=== PATIENT | male | born 1990 | race Caucasian/White ===

== ENCOUNTER 2024-01-12 16:34 | Outpatient (REF) | payer MEDICAID, SELFPAY ==
[2024-01-12 12:14] LABS: HCT 46.3 % (40.0-50.0); HGB 16.6 g/dL (13.5-17.5); MCH 28.8 pg (27.0-33.0); MCHC 35.9 % (32.0-36.0); MCV 80 fL (80-95); MPV 9.9 fL (8.0-11.0); Platelet Count 216 10^3/uL (130-400); RBC 5.76 10^6/uL (4.36-5.78); RDW 11.4 % (11.8-14.1); WBC 4.15 10^3/uL (4.4-10.8)
[2024-01-12 14:11] LABS: TSH (W/Ref FT4) < 0.01 uIU/mL (0.36-3.74)
[2024-01-12 14:37] LABS: FREE T4 1.48 ng/dL (0.76-1.46)
== END 2024-01-12 16:35 | disposition home or self-care (01) ==
LOC: LBN 16:34
PROVIDERS: PCP Nurse Practitioner Family; Visit Provider Nurse Practitioner Family
DX: E05.00 Thyrotoxicosis with diffuse goiter without thyrotoxic crisis or storm (principal)
CPT/HCPCS: 85027; 84439; 84443

== ENCOUNTER 2024-01-16 00:06 | Outpatient (CLI) | payer MEDICAID, SELFPAY ==
--- OUTSIDE RECORDS SUMMARY | 2024-01-16 00:10 | XMS_ITS | Encounter Summary ---
Author Organization [facility]ly [facility] [place] [address] Care Team Providers Care Sustainability Executive Director Name Role Phone None Primary Care Provider Unavailabl e Reason for Visit * Consultation (Routine) - Specialty Diagnoses / Procedures Referred By Daria t Referred To Contact Neurology Diagnoses Nocturnal seizures nocturnal seizures Procedures Epilepsy Clinic Roni De La Cruz MD [address] [place] [address] [place] [address] [facility] [address] [place] [id number] Referral ID Status Reason Start Date Expiration Date V isits Requested Visits Authorized [id number] [facility] Consult, Test & Treat PCP Updated and/or Approved 10/08/2016 10/08/2017 6 6 Encounter Details Date Type Department Care Team (Late st Contact Info) Description 11/06/2016 9:00 AM EDT Office [place] [address] Matheus Coughlin MD [facility] [place] [address] Focal epilepsy Social History Tobacco Use Types Packs/Day Years Used Date Smoking Tobacco: Some Days Smokeless Tobacco: Never Alcohol Use Standard Drinks/Week Comments Yes 0 (1 standard drink = 0.6 oz pur e alcohol) Couple drinks/night Sex and Gender Information Value Date Recorded Sex Assigned at Not on file Gender Identity Not on file Sexual Orientation Not on file documented as of this encounter Last Filed Vital Signs Vital Sign Reading Time Taken Comments Blood Pressure 133/75 11/06/2016 9:19 AM EDT Pulse 58 11/06/2016 9:19 AM EDT Temperature - - Respiratory Rate - - Oxygen Saturation - - Inhaled Oxygen Concentration - - Weight 85.3 kg (188 lb) 11/06/2016 9:19 AM EDT Height 180.3 cm (5' 11) 11/06/2016 9:19 AM EDT reported Body Mass Index 26.22 11/06/2016 9:19 AM EDT documented in this encounter Progress Notes * Matheus Coughlin MD - 11/06/2016 9:00 AM EDT [facility] [place] [address] Patient - Raymond Quiros Date of - 1990 PCP - None NEW Patient Evaluation I saw Raymond Quiros today at the [facility] for a consultation referred from Dr. Hansen for second opinion regarding patient with a first time diagnosis of epilepsy. Raymond is a 26-year-old right-handed man. He comes to the office accompanied by his . Patient reports that on August 29 and subsequently September 28, 2016, he suffered 2 generalized convulsions occurring in sleep. He does not remember anything from this. He recalls going to sleep in the evening without any concerns. At approximately 2 or 3 in the morning, his is woken up with him having body jerks, choking, shaking for approximately a minute. Subsequently, patient is unresponsive, groaning, and disoriented for about 30 minutes. He is not aggressive. Both of these episodes were very similar to each other. Patient was taken to the emergency room where evaluations have been normal. He has had an MRI scan of the brain on 09/16/16, which was read as normal. He also had 24-hour EEG on 10/04/2016 which was normal. Patient reports no prior symptoms similar to these. He denies any unexplained neurological symptoms. He had normal and normal early development. There is no childhood history of febrile seizures, [employer]ILDER [employer], infections, or traumatic brain injury. There is no family history of epilepsy. Patient has no other medical problems. Patient is presently on zonisamide 100 mg 3 tablets in the evening. He denies any side-effects to this medication. He is not taking any other medications. He has no medication allergies. Patient went to college at the [employer] and has a degree in entrepreneurship. 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 He smokes cigarettes, occasionally smokes marijuana, and drinks daily 2 to 3 beers. Patient denies any family history of neurological diseases. On review of systems, he replies a never to 19 items. He reports his depression score to be a 6 and quality of life score to be 9 out of 10. On examination, blood pressure is 133/75. His heart rate is 58. His height is 5' 11 and his BMI is 26. On neurological examination, patient has a narrow-based, symmetric arm swing to his gait. He is steady in the Romberg position with his eyes closed for 10 seconds. Cranial nerve examination reveals normal eye movements, including no nystagmus. Pupils are reactive. Fundi appear normal with sharp disk borders bilaterally. Face is symmetric. Tongue and palate are midline. Patient has symmetric fine finger movements, rapid alternating movements, and foot taps bilaterally. Ndqx-ro-plkk and xblkmr-oj-uksx are normal. Reflexes are 2+ throughout. There is no ankle clonus. Sensory examination to vibration and sharp is normal. I spent 60 minutes with Raymond, 35 minutes of this time were spent in counseling him regarding diagnosis of epilepsy, medication treatment and side-effects, future of taking medications, and safety with epilepsy especially given his job. I agree with Dr. Hansen that Raymond has had 2 generalized convulsive seizures with no risk factors and seemingly no inciting events. He is doing very well on zonisamide 300 mg without side-effects or seizures since starting the medication. We discussed that he should stay on this regimen for between 2 and 4 years, and subsequently can attempt a wean off the medications. If he were to have another seizure, increasing to 500 or 600 mg daily is indicated. Subsequently other medications can be used. Most likely, he has focal epilepsy. We discussed driving. I think it is safe for him to drive, as he had only nocturnal convulsions. We discussed work safety, including climbing ladders and roofs. I think this is probably also safe, as the seizure was nocturnal and patient is not having any balance problems from the zonisamide. We discussed when he should be more careful, including when he missed medications, when he has a fever, which he is stressed out or sleep deprived or any of the combination of above. Patient understood this well. We discussed seizure first aid, memory, and depression problems that could occur from epilepsy. I was real happy to see this patient. He follow up with Dr. Hansen. documented in this encounter Plan of Treatment Not on file documented as of this encounter Visit Diagnoses Diagnosis Focal epilepsy Localization-related (focal) (partial) epilepsy and epileptic syndromes with simple partial seizures, without mention of intractable epilepsy documented in this encounter Care Teams Sustainability Executive Director Relationship Specialty Start Date End Date None None PCP - General 11/06/16 documented as of this encounter
--- OUTSIDE RECORDS SUMMARY | 2024-01-16 00:10 | XMS_ITS | Clinical Summary ---
Author Organization [facility] [place] [address] Care Team Providers Care Edge Finisher Name Role Phone None Primary Care Provider Unavailabl e Allergies No known active allergies Medications Medication Sig Dispensed Refills Start Date End Date Status zonisamide (ZONEGRAN) 100 mg Capsule Take 3 capsules by mouth daily. 3 10/01/2016 Active Active Problems No known active problems Social History Tobacco Use Types Packs/Day Years Used Date Smoking Tobacco: Some Days Smokeless Tobacco: Never Alcohol Use Standard Drinks/Week Comments Yes 0 (1 standard drink = 0.6 oz pur e alcohol) Couple drinks/night Sex and Gender Information Value Date Recorded Sex Assigned at Not on file Gender Identity Not on file Sexual Orientation Not on file Last Filed Vital Signs Vital Sign Reading [...] Mass Index 26.22 11/06/2016 9:19 AM EDT Plan of Treatment Health Maintenance Due Date Last Done Comments HIV screen 08/31/2009 Hepatitis C Screening 08/31/2009 Hepatitis B vaccine (0-59 yrs) (1) 08/31/2010 Tetanus/Diphtheria/Pertussis Vaccines (1 - Tdap) 08/31 Covid-19 Vaccine (1 - 2023-25 season) 2023 Influenza (Flu) vaccine (1 o f 1 - Influenza standard series) 10/19/2023 Care Teams Edge Finisher Relationship Specialty Start Date End Date None None PCP - General 11/06/16
--- OUTSIDE RECORDS SUMMARY | 2024-01-16 00:10 | XMS_ITS | Encounter Summary ---
Author Organization [facility] Address [facility] [place] [address] Care Team Providers Care Nuclear Worker Technician Name Role Phone Jono Faust MD, Roni Primary Care Provider [phone] Encounter Details Date Type Department Care Team (Latest Contact Info) Description 08/29/2016 - 08/29/2016 11:59 PM EDT Hospital Encounter Radiology Library at [facility] [place] [address] Dashawn Castelan MD [facility] [place] [address] Pain Discharge Disposition: Home Social History Tobacco Use Types Packs/Day Years Used Date Smoking Tobacco: Never Assessed Sex and Gender Information Value Date Recorded Sex Assigned at Not on file Gender Identity Not on file Sexual Orientation Not on file documented as of this encounter Plan of Treatment Not on file documented as of this encounter Procedures Procedure Name Priority Date/Time Associated Diagnosis Comments FILM LIBRARY STORAGE ONLY CT HEAD Routine 08/29/2016 12:00 AM EDT Pain documented in this encounter Results * Film Library- Storage Only CT Head (08/29/2016 12:00 AM EDT) Narrative RAD - 10/04/2016 1:17 PM EDT This exam is for storage only and is auto-finalizing. Dashawn Castelan MD [facility] FILM LIBRARY ORD ERABLES [place], [place] documented in this encounter Visit Diagnoses Diagnosis Pain Generalized pain documented in this encounter Care Teams Nuclear Worker Technician Relationship Specialty Start Date End Date Roni [place] [address] PCP - General 01/09/10 10/03/16 documented as of this encounter
--- OUTSIDE RECORDS SUMMARY | 2024-01-16 00:10 | XMS_ITS | Encounter Summary ---
Author Organization [facility] Address [facility] [place] [address] Care Team Providers Care Poultry Inspector Name Role Phone Jono Faust MD, Roni Primary Care Provider [phone] Encounter Details Date Type Department Care Team (Latest Contact Info) Description 09/16/2016 - 09/16/2016 11:59 PM EDT Hospital Encounter Radiology Library at [facility] [place] [id number] Dashawn Castelan MD [facility] [place] [address] Pain Discharge Disposition: Home Social History Tobacco [...] Associated Diagnosis Comments FILM LIBRARY STORAGE ONLY MR HEAD Routine 09/16/2016 12:00 AM EDT Pain documented in this encounter Results * Film Library- Storage Only MR Head (09/16/2016 12:00 AM EDT) Narrative RAD - 10/04/2016 1:16 PM EDT This exam is for storage only and is auto-finalizing. Dashawn Castelan MD [facility] FILM LIBRARY ORD ERABLES [place], [place] documented in this encounter Visit Diagnoses Diagnosis Pain Generalized pain documented in this encounter Care Teams Poultry Inspector Relationship Specialty Start Date End Date Roni [place] [address] PCP - General 01/09/10 10/03/16 documented as of this encounter
--- NOTE | 2024-01-16 08:30 | DI.RAD_ITS ---
Exam(s) XR KNEE RT 3V AP,LAT,JR EXAM: XR KNEE RT 3V AP,LAT,JR CLINICAL HISTORY: giving out RT KNEE INJURY [id number]. TECHNIQUE: 2D digital imaging was performed of the right knee. Three views obtained. AP, lateral an d PA tunnel views were obtained. COMPARISON: No exams were available for comparison FINDINGS: BONES: No acute fracture is present. No bony destructive lesion is seen. JOINTS: The knee is normally aligned. No joint effusion is seen. SOFT TISSUE: There is mild soft tissue swelling anterior to the patella. IMPRESSION: No acute fracture or dislocation. DATA REPOSITORY: RADIATION DOSE DELIVERED:
== END 2024-01-16 00:26 ==
LOC: DI 00:07
PROVIDERS: PCP Nurse Practitioner Family; Visit Provider Nurse Practitioner Family
DX: S89.91XD Unspecified injury of right lower leg, subsequent encounter (principal); X58.XXXD Exposure to other specified factors, subsequent encounter
CPT/HCPCS: 73562

== ENCOUNTER 2024-02-19 02:34 | Outpatient (CLI) | payer MEDICAID, SELFPAY ==
--- NOTE | 2024-02-19 06:15 | DI.MRI_ITS ---
Exam(s) MR LOWER JOINT RT WO EXAM: MR LOWER JOINT RT WO CLINICAL HISTORY: ? ACL, MCL, MENISCUS TEAR,rt knee injury,[id number] TECHNIQUE: Multiplanar multisequence MRI of the knee was performed. COMPARISON: CR XR KNEE RT 3V AP,LAT,JR from 01/16/2024 FINDINGS: EFFUSION: A small amount of increased joint fluid. There is no large joint effusion. There is a thi n Hartmann cyst in the medial popliteal fossa which measures 4 cm length by 0.4 cm x 0.3 cm. MARROW:There is no evidence of fracture, bone contusion, nor osteochondral defects.. There are no si gnificant osseous lesions. There are no obvious loose intra-articular bodies. PATELLOFEMORAL COMPARTMENT: The quadriceps tendon is intact. The patellar ligament is intact. There is no significant thinning of the retropatellar cartilage. No evidence of fissure nor signific ant chondral defect. No osteochondral defect at this level.There is no intraosseous signal to sugges t recent patellar dislocation. There are no patellar retinacular tears. CRUCIATE LIGAMENTS: The anterior cruciate ligament appears somewhat thinner than typical for male of this age group. There is also some attenuation of this structure at its superior aspect. There is n o abnormal high signal to suggest acute ACL tear. The posterior cruciate ligament is intact but exhibits somewhat vertical course, possibly indirectly related to the ACL findings. MEDIAL COMPARTMENT/MEDIAL MENISCUS: There is a E radial tear in the outer 3rd of the medial meniscus which involves both the posterior and anterior horns. There is no bucket-handle configuration. The meniscal root appears intact. The body of the medial meniscus appears attenuated/blunted. There are no flipped meniscal fragments. There does not appear to be significant thinning of the articular cartilage over the medial condyle. There is no subarticular edema nor osteochondral defects. No marginal osteophytes. MEDIAL COLLATERAL LIGAMENT: Intact LATERAL COMPARTMENT/LATERAL MENISCUS: There is no evidence of lateral meniscal tear.There are no kelly dral defects, osteochondral defects, subarticular marrow edema, nor osteophytes evident. ILIOTIBIAL BAND: Intact LATERAL COLLATERAL LIGAMENT COMPLEX: The fibular collateral ligament is intact. The biceps femoris t endon is intact.Popliteus muscle and tendon are intact. OTHER: There is a small septated ganglion cyst measuring 7 by 6 x 6mm just medial to the proximal tib ial fibular joint, anterior to the musculotendinous junction of the popliteus. This is probably off of the tibial fibular articulation at this level. There is no actual joint effusion in this articula tion nor marrow edema around this articulation. IMPRESSION: 1. There is an outer 3rd vertical radial tear involving both the anterior posterior horns of the medi al meniscus. No associated bucket handle configuration nor flipped meniscal fragments. There is als o blunting of the body of the medial meniscus. No subarticular bone edema, osteochondral defects, no r medial compartment osteophytes. 2. The appearance of the anterior cruciate ligament is somewhat abnormal in that it appears slightly thinner than typical a male patient of this age group. Although there is no abnormal high signal to suggest acute ACL tear, I suspect that there has been prior partial tearing of this structure. Only one of the two fascicles of the structures visualized. The PCL is intact but somewhat vertically brandon entated which may be indirectly related to the ACL findings. 3. There is a small 0.7 x 0.6 x 0.6 cm septated ganglion cyst which appears to be off the medial aspe ct of the proximal tibiofibular articulation, as described above. 4. There is a small amount of increased joint fluid. There is a thin Hartmann cyst in the medial poplit eal fossa. DATA REPOSITORY:
== END 2024-02-19 02:54 ==
LOC: DI 02:34
PROVIDERS: PCP Nurse Practitioner Family; Visit Provider Student in an Organized Health Care Education/Training Program
DX: M23.231 Derangement of other medial meniscus due to old tear or injury, right knee (principal)
CPT/HCPCS: 73721

== ENCOUNTER 2024-03-02 12:07 | Outpatient (CLI) | payer MEDICAID, SELFPAY ==
[2024-03-02 11:27] LABS: TSH (W/Ref FT4) < 0.01 uIU/mL (0.36-3.74)
[2024-03-02 11:46] LABS: FREE T4 0.74 ng/dL (0.76-1.46)
== END 2024-03-02 12:08 | disposition home or self-care (01) ==
LOC: LBO 12:08
PROVIDERS: PCP Nurse Practitioner Family; Visit Provider Nurse Practitioner Family
DX: E05.00 Thyrotoxicosis with diffuse goiter without thyrotoxic crisis or storm (principal); S83.511A Sprain of anterior cruciate ligament of right knee, initial encounter; S83.241A Other tear of medial meniscus, current injury, right knee, initial encounter; S89.91XA Unspecified injury of right lower leg, initial encounter
CPT/HCPCS: 36415; 84439; 84443

== ENCOUNTER 2024-04-16 08:48 | Day surgery (SDC) | payer MEDICAID, SELFPAY ==
[2024-04-16] VITALS (17 sets, daily range): BP systolic 104–128; BP diastolic 59–92; PULSE 51–77; RESP 10–21; TEMP 36–36.7; O2SAT 97–100; BMI 26.8
--- NOTE | 2024-04-16 06:14 | W.PM.DSUDISC ---
Date of service: 04/16/24 Discharge Plan Disposition Patient Disposition: Home Condition: Stable Discharge Details Attending Provider: Oscar Marrero Primary Care Provider: Greyson Villar Home Meds and New Rx's Prescriptions: New naproxen 250 mg tablet 250 - 500 mg PO BID PRNQty: 40 0RF Rx Instructions: take with a meal aspirin 81 mg tablet,delayed release (DR/EC) 81 mg PO DAILY 14 Days Qty: 14 0RF oxycodone 5 mg tablet 5 - 10 mg PO Q4H MDD 30 mg PRN (Reason: moderate to severe pain) Qty: 18 0RF Continued efinaconazole 10 % solution with applicator 1 applic topical QHS 336 Days Qty: 8 0RF methimazole 10 mg tablet 10 mg PO DAILY Qty: 90 0RF zonisamide 100 mg capsule 200 mg PO BID Qty: 360 1RF Discharge Instructions Additional Instructions: Surgery: Right knee arthroscopy with ACL reconstruction (allograft) and partial medial & lateral meniscectomy 04/16/24; Chronic moderate MCL sprain Activity: Weightbearing as tolerated. No brace or crutches needed as soon as comfortable and stable on knee. Restore full knee extension as soon as possible. Perform early quad sets/quadriceps isometrics. Gradually increase flexion to full. Recommend elevation to minimize swelling discomfort. Encourage ankle pumps and wiggle toes to improve circulation. A physical therapy prescription will be sent electronically to begin in about 3 weeks. Avoid sports activities for about 9 months. Prescriptions: Aspirin 81 mg take 1 daily to prevent a blood clot for 14 days, starting tomorrow Naproxen 250 mg take 1-2 every 12 hours with a meal as needed for moderate pain Oxycodone 5 mg take 1-2 every 4-6 hours as needed for severe pain You may use vqak-yyc-kswkcyd Tylenol (acetaminophen) as needed for mild pain. These pain medications may be taken all at once or in different combinations as needed. Also, recommend Colace (docusate) as a stool softener as surgery and pain medicine cause constipation. You may try brts-nrh-zvvwnai diphenhydramine (Benadryl) 25-50 mg nightly as a sleep aid Dressings: Loosen/adjust JOHNNIE bandage for comfort. Leave dressing in place for 3 days. May then remove and leave open to air or cover incisions with Band-Aids. Leave the sticky Steri-Strips in place until they fall off or remove them after you shower. May shower after 5 days. Follow-up: 10-[address] Marrero You may take off the leg compression stockings this evening at home. You may also leave them on a few days longer if you have a history of leg swelling or edema. Let us know right away if you develop any redness, drainage, fevers, chest pain, or trouble breathing. Do not drink alcohol or drive for at least 24 hours after anesthesia. Please call the office during business hours with any questions or concerns. Discharge Orders Discharge Orders: Discharge Order (Routine); Ordered 04/16/24 Ordered By: Heather Covington DS: Diagnosis Discharge Diagnosis (1) Right ACL tear: Status: Acute (2) Acute medial meniscus tear of right knee: Status: Acute (3) Injury of medial collateral ligament of right knee: Status: Acute
--- NOTE | 2024-04-16 07:29 | ROE_ITS ---
Operative Note Operative Note PRE-OP DIAGNOSIS: Right knee: 1. Chronic ACL rupture 2. Chronic medial meniscus tear 3. Chronic healed MCL sprain 4. Small lateral meniscus tear PROCEDURE: Right knee: 1. ACL reconstruction, CPT #57784: Quadriceps allograft 2. Partial medial & lateral meniscectomy, CPT #40651 SURGEON: Oscar Marrero BOTTOM STAINER: Heather Covington ANESTHESIA TYPE: Local By Surgeon, General LMA/ETT and Primary Nerve Block Refer to Anesthesia Record ESTIMATED BLOOD LOSS: 10 TOURNIQUET TIME: 0 COMPLICATIONS: None Patient was transported to: PACU Patient's condition: stable Implants: Arthrex ACL TightRope II RT and ABS with 8x12 mm cortical button QuadLink pre-sutured quadriceps allograft: 10.5 x68 mm Indications: Please see complete medical record for details. Findings: Exam under anesthesia: Full range of motion, grossly positive Alfonso, equivocal pivot shift, moderate increased opening valgus stress with firm endpoint in extension and mild flexion. Stable varus. Arthroscopic findings: Moderate diffuse synovitis. Largely intact cartilage surfaces. Complete proximal ACL disruption, lateral empty wall. Small posterior horn lateral meniscus incomplete or more likely healed tear. Moderately sized red-white zone medial meniscus body posterior horn junction complex irreparable tear. Negative MCL drive-through sign medial compartment. Procedure Description: In the operating room, general anesthesia was induced. The patient was positioned supine on the operating room table. All bony prominences were well- padded. Preoperative antibiotics were administered. The knee was prepped and draped in the usual sterile fashion. The correct patient, procedure, and side of the procedure were all verified prior to incision. Exam under anesthesia was performed. Local anesthetic containing epinephrine was infiltrated about the planned anteromedial, anterolateral, lateral distal femoral, and pretibial surgery sites. The standard high and tight anterolateral and anteromedial portals were established and a complete diagnostic arthroscopy was performed with relevant findings detailed above. A passport cannula was inserted in both the anteromedial and anterolateral portals. The medial meniscus was thoroughly inspected. Unfortunately, it had chronic frayed appearance both of the displaceable white and white-red zone tissue as well as the white-red zone and peripheral remnant tissue. The tissue was questionable for repair, but repair was started and decision will be made based on tissue quality as it progressed. From a single puncture site medially the medial meniscus remnant was trephinated with an 18-gauge needle. The meniscus ProGrasp was brought in to abrade the remnant and the backside of the torn tissue. The meniscus tissue was quite friable and poor. Also, there was a radial component that near completely transverse the meniscus at the central zone of the tear and obligated meniscectomy. The radial component was easily transected with the shaver, did not even require meniscal biters. The remaining parrot-beak components anteriorly and posteriorly were then resected with biters and aide. The remnant was then contoured especially into the anterior horn using meniscus biters and torpedo shaver. Although a moderate amount of the body posterior horn junction red-white and white cells had to be removed there was a modest remnant intact at this area as well. There were no additional tears medial meniscus root or anterior that required treatment. With the knee in the stress post, valgus did not open the medial compartment to any excessive amount, which would indicate likely deep MCL injury requiring repair. In the [id number] position the lateral meniscus was inspected. There was incomplete surface tearing at the posterior horn near the root both the superior and inferior leaflets. Fortunately, neither probed more into the meniscus posterior horn substance and they did not connect. There is no displaceable tissue. There was only a small fraying area inferior to the posterior horn and some fraying heading near the root which was lightly trimmed and resected with the torpedo shaver. In the intercondylar area, the ACL remnant was removed leaving enough footprint on the femur and tibia to localize anatomic socket placement. The lateral wall was essentially empty, but the large ACL remnant had scarred to the PCL was carefully dissected off and then dissection carried down to the tibia living some remnant about the area for reconstruction. A small notchplasty was performed to allow proper visualization of the back wall. The graft was measured and prepared on the back table. The TightRope II BTB and TightRope II ABS adjustable-loop cortical suspensory fixation implants were loaded on QuadLink pre-sutured quadriceps allograft. The femoral and tibial ends each measured 11 mm. The graft was marked at 20 mm from each end. On the ABS side, the tensioning sutures were marked and a shuttle suture was added. The graft was manually tensioned and the construct did not demonstrate any elongation. The graft was then compressed in a graft tube and covered with vancomycin soaked sponges. The femoral guide was then placed through the anterolateral portal carefully tar geting the appropriate anatomic ACL origin. The outer 9 mm diameter of the guide was positioned anatomically with appropriate space between the proximal and posterior articular margins. On the lateral thigh, drill guide position and angle adjusted to about 60 degree angle to the longitudinal axis of the femur in the coronal plane and 20 degree angle to the trans-epicondylar axis in the axial plane to create the most optimal femoral socket. Knife and snap were used to open the skin and IT band and placed the drill guide on bone while maintaining appropriate position on the lateral wall. The tunnel length was noted to be used for marking and passing the femoral button. The flip cutter was then drilled to the appropriate location. The drill guide malleted 7 mm into the cortex. The remainder of the targeting guide removed. The FlipCutter was deployed to 11 mm and retrograde reaming done to a depth of 30 mm. Bony debris was removed with the shaver. The flip cutter was then closed, withdrawn, and a FiberStick used to pass a #2 FiberWire shuttle stitch, which was withdrawn out the anterolateral portal. The tibial guide was then used to target the anatomic ACL insertion through the anteromedial portal. The drill angle adjusted to 57.5 degrees and a pretibial incision made. The drill guide was placed on bone, tunnel length noted, and the flip cutter drilled to the appropriate location. The drill guide malleted 7 mm into the cortex. The remainder of the targeting guide removed. The FlipCutter was deployed to 11 mm and retrograde reaming done to a depth of 35mm. Bony debris was removed with the shaver. The flip cutter was then closed, withdrawn, and a FiberStick used to pass a #2 FiberWire shuttle stitch, which was withdrawn out the anteromedial portal. The mechanical shaver was used to remove bone debris as well as chamfer and remove soft tissue from the edges of the sockets. A femoral shuttle sutures were withdrawn out the anterior medial portal. The PassPort was removed. This portal dilated to accommodate the graft size. The graft was brought over to the knee and the femoral sutures shuttled out the lateral thigh and advanced until the button was near the far cortex. Under arthroscopic visualization with the knee slightly hyperflexed, and the button was then passed and flipped on the far cortex. Counter traction was then maintained on the tibial side of the graft while it was carefully advanced into the knee and then about 15 mm into the femoral socket. The tibial sutures were then shuttled through the tibial tunnel and passing stitch removed while carefully noting the tensioning stitches. The graft was then dunked about 15 mm into the tibial socket. 8 x 12 mm ABS button was then loaded to the ABS loop and tension sutures used to bring the cortical button down to bone. The graft was advanced and then provisionally tensioned on both the femoral and tibial sides. The knee was then cycled 22 times, tensioning rechecked, and final tightening done with the knee in full extension with a moderate reverse Alfonso maintained. The graft position and tension were appropriate. There was no impingement in full extension. Alfonso exam was rockstable. Valgus stress exam was greatly improved and stable in full extension with mildly increased opening and mild flexion, but solid endpoint. Decision was made to omit any takedown and rerepair of this largely healed chronic MCL injury. Femoral passing sutures were removed. Backup knots were then tied on both sides and suture tails cut. The knee and all portals were copiously irrigated and then knee drained of arthroscopic fluid. 3-0 Monocryl was used to close the portals and small incisions in a buried interrupted fashion. Mastisol, Steri-Strips, Xeroform, 4 x 4 gauze, and sterile soft roll was applied. The extremity was wrapped gently with an Ernst bandage. A soft knee immobilizer placed. The patient awoke from anesthesia without complication and was transferred to the recovery room in a stable condition. Date of Procedure: 04/16/24
--- NOTE | 2024-04-16 09:15 | W.ANESPRE ---
General Info Date of Service Date Performed: 04/16/24 Height: 5 ft 11.5 in Weight: 88.451 kg Body Mass Index (BMI): 26.8 Surgical Procedure: Operation Date: 04/16/24 09:40 Proposed Procedure Side Surgeon p Knee ACL Reconstruction (Quadriceps Allograft), Probable Medial meniscus Repair, Possible Open Medial Collateral Ligament Repair Right Oscar Marrero MD Meds Allergies and Home Medications Allergies Allergy/AdvReac Type Severity Reaction Status Date / Time No Known Allergies Allergy Verified 04/16/24 09:10 Home Medication ?Medication ?Instructions ?Recorded efinaconazole 10 % topical 1 applic topical QHS 48 weeks #8 mL 01/12/24 solution with applicator methimazole 10 mg tablet 10 mg PO DAILY #90 tabs 01/12/24 zonisamide 100 mg capsule 200 mg (2 x 100 mg) PO BID #360 03/08/24 caps Current Visit Medications: Current Medications Generic Name Dose Route Start Last Admin Trade Name Freq PRN Reason Stop Dose Admin Acetaminophen 1,000 mg 04/16/24 07:29 Acetaminophen 500 Mg Tab PO 05/16/24 07:28 Q6H PRN PRN Ringer's Solution 1,000 mls @ 30 mls/hr 04/16/24 06:00 IV 04/16/24 23:59 INFUSION KIM Cefazolin Sodium/Dextrose 2 gm in 50 mls @ 100 mls/hr 04/16/24 06:00 Ancef Duplex IVPB 04/16/24 23:59 PREOP KIM Tranexamic Acid/Sodium Chloride 1,000 mg in 100 mls @ 600 mls/hr 04/16/24 06:00 IVPB 04/16/24 23:59 PREOP KIM IV Miscellaneous Supplies 1 each 04/16/24 06:00 Iv Access IV 04/16/24 23:59 DIRECTED KIM Naproxen 250 - 500 mg 04/16/24 07:29 Naproxen 500 Mg Tab PO 05/16/24 07:28 BID PRN PRN Oxycodone HCl 5 - 10 mg 04/16/24 06:13 Oxycodone 5 Mg Tab PO 05/16/24 06:12 Q3H PRN PRN Pain Sodium Chloride 0 ml 04/16/24 06:00 Normal Saline Flush 10 Ml Syr IV 04/16/24 23:59 PRN PRN Sodium Chloride 0 ml 04/16/24 06:00 Normal Saline 10 Ml Vial IJ 04/16/24 23:59 DIRECTED PRN Sterile Water 0 ml 04/16/24 06:00 Water,Injection,Sterile 10 Ml Vial IJ 04/16/24 23:59 DIRECTED PRN PFSH Active Problems Active Problems: Problem Status Onset Code Injury of medial collateral ligament of right knee Acute ~03/2023 S89.91XA Acute medial meniscus tear of right knee Acute ~03/2023 S83.241A Right ACL tear Acute ~03/2023 S83.511A Right knee injury Acute S89.91XA Epilepsy Acute G40.909 Graves disease Acute E05.00 Right foot strain Acute S96.911A Contusion Acute T14.8 Surgical History Surgical History (Updated 04/14/24 @ 11:04 by Ash Solano) Hx of elbow surgery 11 years old Tobacco Smoking/Tobacco Use Status: Former Tobacco Use Passive smoking exposure: Yes Alcohol Alcohol Intake: current Alcohol intake frequency: 0-2 drinks per day Alcohol type: beer Substance Use Substance use: Never Substance use type: does not use Vital Signs and Lab Results Vital Signs Most Recent Vital Signs in EMR: Temp Pulse Resp BP Pulse Ox 36.7 C 66 16 128/92 H 98 04/16/24 09:12 04/16/24 09:12 04/16/24 09:12 04/16/24 09:12 04/16/24 09:12 Lab Results Blood Type / Crossmatch: No Data to Display Complete Blood Count: No Data to Display Complete Metabolic Panel: No Data to Display Liver Function Panel: No Data to Display Coagulation Panel: No Data to Display Cardiac Panel: No Data to Display Arterial Blood Gas: No Data to Display Venous Blood Gas: No Data to Display Pancreas Panel: No Data to Display Thyroid Panel: No Data to Display Infectious Disease: No Data to Display Blood Cultures: No Data to Display Toxicology Panel: No Data to Display Anesthesia Assessment and Plan Anesthesia History Personal History: No History of Anesthesia Complications Family History: No Family History of Anesthesia Complications Exercise Tolerance Exercise Tolerance: Metabolic Equivalents>4 Cardiac & Pulmonary Exam Cardiac Exam: Normal S1/S2 Heart Sounds Pulmonary Exam: Clear Bilateral Breath Sounds Implantable Cardiac Device Does patient have a Pacemaker or an ICD?: No Airway Exam Known Difficult Airway: No Mallampati Class: 3 Mouth Opening: Normal (> 3cm) Thyromental Distance: Greater than 3 cm Neck Range of Motion: Full ROM Neck Circumference: Normal Teeth Condition: Normal Dentition ASA Classification ASA Score: ASA 2 Emergency Case?: No NPO Status NPO Status: NPO Clears >2 hours, Solids >8 hours Anesthesia Plan Resuscitation Status: Full Code Anesthesia Technique: General Anesthesia Airway Planned: Endotracheal Tube Pain Management: Surgeon and patient request nerve block Monitors Used: Standard Monitors Preoperative Comments:: 33 yo male for ACL repair. Sig PMHx: epilepsy (well controlled. zonisamide), graves (methimazole). former smoker, occ EtOh. Discussed spinal vs general and adductor vs femoral. Will do GAETT with femoral nerve block.
[2024-04-16] MEDS: Lactated Ringers 1,000 ML 30 ML IV (10:15)
--- NOTE | 2024-04-16 10:45 | W.ANESNERVE ---
Nerve Block Single Injection Procedure Date and Time Date Performed: 04/16/24 Procedure Start: 10:41 Location Where Procedure Performed Procedure Location: Day Surgery Unit Reason Performed: Postoperative Analgesia Requesting Provider: Oscar Marrero Timeout Performed Timeout Performed: Yes Monitoring Used ECG, Blood Pressure and SpO2 Sterility Sterility: Hand Hygiene, Surgical Cap, Surgical Mask, Sterile Gloves and Chlorhexidine Sedation Given During Procedure Sedation Given (Indicate Dose Given): Versed IV Dose:: 2 mg and Propofol IV Dose:: 70 mg Patient Mental Status Patient Mental Status: Sedate with meaningful communication Nerve Block 1st Nerve Block: Laterality: Right Block Type: Femoral Ultrasound Image Saved?: Yes Needle / Catheter Used: 100mm SonoPlex II Local Anesthetic Bolus (Indicate Dose Given): Lidocaine used for local infiltration of skin, Injected in 3-5ml increments after negative blood aspiration and Bupivacaine 0.375% Dose:: 20 mL Additives (Indicate Dose Given): Epinephrine to make 1:400,000 (2.5mcg/ml) Dose:: 50 mcg and Precedex Dose:: 40 mcg Ultrasound: Sterile probe cover and gel used Nerve Stimulator: Supplement to Ultrasound use and No twitch or parasthesia noted < 0.5 mA Paresthesia: None Procedure Tolerated: No Complications Procedure Outcome: Successful Performed By: Gabe Trujillo
[2024-04-16] MEDS: ceFAZolin 2 GM/50 ML BAG IVPB (11:06)
[2024-04-16] MEDS: TRANEXAMIC ACID/SOD. CHL. 1,000 MG/100 ML BAG 600 MG IVPB (11:08)
[2024-04-16] MEDS: Bupivacaine 0.25% Pres-Free W/EPI 30 ML VIAL (11:50)
[2024-04-16] MEDS: EPINEPHrine 10 MG/10 ML ML ×2 (13:02→13:10)
--- NOTE | 2024-04-16 13:50 | W.ANESPOSTOP ---
Postoperative Evaluation Date, Time and Location Date Performed: 04/16/24 Time Performed: 13:50 Patient Location: Day Surgery Unit Vital Signs Most Recent Imported Vital Signs: Most Recent Vital Signs Temp Pulse Resp BP Pulse Ox 36.6 C 63 12 112/69 97 04/16/24 13:40 04/16/24 13:46 04/16/24 13:46 04/16/24 13:46 04/16/24 13:46 Pain Score Most Recent Pain Score: Most Recent Pain Score Pain Level 3 04/16/24 13:45 Assessment Mental Status: Awake (Alert & Oriented to Patient Baseline) Airway and Respiratory Function: Patent airway with normal (patient baseline) respiratory exam Cardiovascular Function: Hemodynamically Stable Hydration Status: Adequately Hydrated Nausea & Vomiting: No Nausea or Vomiting Pain: Pain is tolerable per patient Peripheral Nerve Block: Regional nerve block not resolved at time of post operative discharge
[2024-04-16] MEDS: oxyCODONE 5 MG TAB PO (14:26)
== END 2024-04-16 15:45 | disposition home or self-care (01) ==
LOC: SUR 08:48
PROVIDERS: PCP Nurse Practitioner Family; Visit Provider Student in an Organized Health Care Education/Training Program
PROC: (CPT 29888; principal; 2024-04-16 09:30)
DX: S83.511A Sprain of anterior cruciate ligament of right knee, initial encounter (principal); S83.241A Other tear of medial meniscus, current injury, right knee, initial encounter; S89.91XA Unspecified injury of right lower leg, initial encounter; X58.XXXA Exposure to other specified factors, initial encounter; S83.281A Other tear of lateral meniscus, current injury, right knee, initial encounter; G89.18 Other acute postprocedural pain
CPT/HCPCS: 29888; 29880; 64447; J0131; J0171; J0665; J0690; J1100; J1805; J1885; J2250; J2405; J2704; J3370